=== PATIENT | male | born 1995 | race Caucasian/White ===

== ENCOUNTER 2016-10-31 19:55 | Emergency (ER) | payer SELFPAY ==
[2016-10-31 20:12] VITALS: BP 149/83
--- NOTE | 2016-10-31 21:01 | ER Document Report ---
ED Medical Screen (RME) - General Chief Complaint: Abdominal Pain Stated Complaint: ABDOMINAL PAIN Time seen by provider: 20:59 Mode of Arrival: Ambulatory Information source: Patient Notes: 21-year-old male developed sudden onset of abdominal pain at 4 PM today bilateral middle quadrant radiated to his right lower quadrant and into his right testicle, no hematuria. Some nausea without vomiting. No fever. No history kidney stones. A level at this time is 3/5. hurts more when he walks. No hx abd surgeries. told pt to stay NPO. I have greeted and performed a rapid initial assessment of this patient. A comprehensive ED assessment, evaluation of the patient, analysis of test results , and completion of the medical decision making process will be conducted by additional ED providers. Physical Exam - Vital signs Vitals: Temp Pulse Resp BP Pulse Ox 97.6 F 102 H 16 149/83 H 98 10/31/16 20:11 10/31/16 20:11 10/31/16 20:11 10/31/16 20:11 10/31/16 20:11 Course - Vital Signs Vital signs: Temp Pulse Resp BP Pulse Ox 97.6 F 102 H 16 149/83 H 98 10/31/16 20:11 10/31/16 20:11 10/31/16 20:11 10/31/16 20:11 10/31/16 20:11
== END 2016-10-31 22:15 | disposition left against medical advice (07) ==
LOC: ER 19:55
DX: R10.9 Unspecified abdominal pain (principal); R11.0 Nausea; Z53.20 Procedure and treatment not carried out because of patient's decision for unspecified reasons
CPT/HCPCS: 99281